=== PATIENT | female | born 1950 | race Caucasian/White ===

== ENCOUNTER 2020-12-27 16:43 | Emergency (ER) | payer OTHER ==
[~2020-12-27] VITALS: Ht 167.6 cm; Wt 90.7 kg
[~2020-12-27 16:43] MED LIST: ATEN50TA PO; TRAM50TA2 PO
[2020-12-27 18:57] LABS: Albumin 3.8 g/dL (3.4-5.0); Potassium 4.2 mmol/L (3.5-5.1)
[2020-12-27 19:03] LABS: BUN/Creatinine Ratio 15.5; Bilirubin, Total 1.2 mg/dL (0.2-1.0); Calcium 8.9 mg/dL (8.5-10.1); Total Protein 7.5 g/dL (6.4-8.2)
[2020-12-27 19:04] LABS: Basophils # (auto) 0 10 ^3/uL (0-0.2); Basophils % (auto) 0.4 % (0.0-2.0); Eosinophils # (auto) 0 10 ^3/uL (0-0.8); Eosinophils % (auto) 0.3 % (0.0-7.0); Hematocrit 46.4 % (36.0-46.0); Hemoglobin 15.9 g/dL (12.2-16.2); Lymphocytes # (auto) 1.6 10 ^3/uL (0.4-5.4); Mean Corpuscular Hemoglobin 28.9 pg (28.0-32.0); Mean Corpuscular Hgb Conc. 34.3 g/dL (32.0-36.0); Mean Corpuscular Volume 84.3 fL (80.0-100.0); Monocytes # (auto) 0.4 10 ^3/uL (0-1.3); Monocytes % (auto) 5.4 % (0.0-12.0); Neutrophils # (auto) 5.5 10 ^3/uL (1.6-8.6); Neutrophils % (auto) 72.9 % (37.0-80.0); Nucleated Red Blood Cells % 0.1 %; Red Blood Cells 5.51 10^6/uL (4.0-5.20); Red Cell Distribution Width 13.4 % (11.8-14.3); White Blood Cell 7.5 10^3/uL (4.4-10.8)
[2020-12-27 20:29] LABS: Urine Bacteria FEW /hpf (None Seen); Urine Blood Negative /uL (Negative); Urine Mucus MODERATE (None Seen); Urine Specific Gravity 1.027 (1.001-1.035); Urine WBC 4 /hpf (0 - 5)
[2020-12-27 21:06] VITALS: BP 155/86
[2020-12-27] MEDS ORDERED: KETOROLAC TROMETH 60MG/2ML VIAL IM ONE (21:30)
[2020-12-27] MEDS ORDERED: cefTRIAXone SOD 1,000 MG VL IM ONE (21:30)
== END 2020-12-27 21:47 | disposition home or self-care (01) ==
LOC: ER 16:43
DX: N39.0 Urinary tract infection, site not specified (principal); K42.9 Umbilical hernia without obstruction or gangrene; E11.9 Type 2 diabetes mellitus without complications; I10 Essential (primary) hypertension; Z90.710 Acquired absence of both cervix and uterus
CPT/HCPCS: 36415; 74176; 80053; 81001; 83690; 84484; 85025; 85049; 87086; 93005; 96372; 99285; J0696; J1885

== ENCOUNTER 2022-12-23 16:54 | Observation (INO) | payer OTHER ==
[~2022-12-23] VITALS: Ht 33 cm; Wt 85.0 kg
[2022-12-23 21:44] VITALS: BP_SYST 146; BP_SYST 156; BP_DIAS 88
[2022-12-23] MEDS ORDERED: HYDROcodone-ACET 5/325MG TAB PO PRN (21:45)
[2022-12-23] MEDS ORDERED: DOCUSATE SOD 100 MG CAP PO PRN (21:45)
[2022-12-23] MEDS ORDERED: NITROGLYCERIN 0.4 MG SL TAB SL PRN (21:45)
[2022-12-23] MEDS ORDERED: ONDANSETRON HCL 4 MG/2 ML VIAL IV PRN (21:45)
[2022-12-23] MEDS ORDERED: hydrALAZINE HCL 20 MG/ML VL IV PRN (21:45)
[2022-12-23] MEDS ORDERED: MORPHINE SULFATE INJ 2 MG/ml SYRG IV PRN (21:45)
[2022-12-23] MEDS ORDERED: ACETAMINOPHEN 325 MG TAB PO PRN (21:45)
[2022-12-23 22:00] VITALS: BP 156/88
[2022-12-23] MEDS: ATORVASTATIN 20 MG TAB PO SCH (22:53)
[2022-12-23] MEDS: CARVEDILOL 3.125 MG TAB PO SCH (22:54)
[2022-12-24 05:00] VITALS: BP 113/59
[2022-12-24 06:45] LABS: Basophils # (auto) 0 10 ^3/uL (0-0.2); Basophils % (auto) 0.9 % (0.0-2.0); Eosinophils # (auto) 0.1 10 ^3/uL (0-0.8); Eosinophils % (auto) 1.8 % (0.0-7.0); Hematocrit 39.8 % (36.0-46.0); Hemoglobin 13.4 g/dL (12.2-16.2); Lymphocytes # (auto) 1.3 10 ^3/uL (0.4-5.4); Lymphocytes % (auto) 24.2 % (10.0-50.0); Mean Corpuscular Hgb Conc. 33.8 g/dL (32.0-36.0); Mean Corpuscular Volume 82.8 fL (80.0-100.0); Monocytes # (auto) 0.4 10 ^3/uL (0-1.3); Monocytes % (auto) 7.4 % (0.0-12.0); Neutrophils # (auto) 3.6 10 ^3/uL (1.6-8.6); Neutrophils % (auto) 65.7 % (37.0-80.0); Nucleated Red Blood Cells % 0.1 %; Red Blood Cells 4.81 10^6/uL (4.0-5.20); Red Cell Distribution Width 13.8 % (11.8-14.3); White Blood Cell 5.4 10^3/uL (4.4-10.8)
[2022-12-24 07:03] LABS: BUN/Creatinine Ratio 19.4 (10.0-20.0); Calcium 8.5 mg/dL (8.5-10.1); Potassium 3.9 mmol/L (3.5-5.1)
[2022-12-24 09:00] VITALS: BP 126/71
[2022-12-24] MEDS ORDERED: ENOXAPARIN SOD 40 MG/0.4 ML SYRINGE SC SCH (10:00)
[2022-12-24] MEDS: ASPirin 81 mg TAB PO SCH (10:00)
[2022-12-24] MEDS: PANTOPRAZOLE 40 MG/10 ML VIAL INJ IV SCH (10:59)
[2022-12-24] MEDS: CARVEDILOL 3.125 MG TAB PO SCH ×2 (11:00→22:00)
[2022-12-24 12:44] VITALS: BP 153/70
[2022-12-24] MEDS ORDERED: DEXTROSE (50%) 50ML SYRG IV PRN (14:45)
[2022-12-24 16:48] VITALS: BP 156/88
[2022-12-24] MEDS: InsuLIN REG 1unit/0.01ml Soln (100units/ml) SC SCH ×2 (17:00→23:43)
[2022-12-24] MEDS: ACCU-CHEK COMFORT CURVE STRIP VI SCH ×2 (17:00→23:37)
[2022-12-24 22:00] VITALS: BP 122/73
[2022-12-24] MEDS: ATORVASTATIN 20 MG TAB PO SCH (23:37)
[2022-12-25 05:00] VITALS: BP 123/82
[2022-12-25] MEDS: ACCU-CHEK COMFORT CURVE STRIP VI SCH ×3 (06:52→17:00)
[2022-12-25 06:54] LABS: Basophils # (auto) 0 10 ^3/uL (0-0.2); Basophils % (auto) 0.6 % (0.0-2.0); Eosinophils # (auto) 0.1 10 ^3/uL (0-0.8); Eosinophils % (auto) 2.2 % (0.0-7.0); Hematocrit 42.5 % (36.0-46.0); Hemoglobin 14.1 g/dL (12.2-16.2); Lymphocytes # (auto) 1.8 10 ^3/uL (0.4-5.4); Lymphocytes % (auto) 31.9 % (10.0-50.0); Mean Corpuscular Hemoglobin 27.7 pg (28.0-32.0); Mean Corpuscular Hgb Conc. 33.3 g/dL (32.0-36.0); Mean Corpuscular Volume 83.3 fL (80.0-100.0); Monocytes # (auto) 0.4 10 ^3/uL (0-1.3); Monocytes % (auto) 7.3 % (0.0-12.0); Neutrophils # (auto) 3.3 10 ^3/uL (1.6-8.6); Nucleated Red Blood Cells % 0.2 %; Red Cell Distribution Width 13.9 % (11.8-14.3); White Blood Cell 5.7 10^3/uL (4.4-10.8)
[2022-12-25] MEDS: InsuLIN REG 1unit/0.01ml Soln (100units/ml) SC SCH ×3 (06:54→17:00)
[2022-12-25 07:27] LABS: BUN/Creatinine Ratio 16.2 (10.0-20.0)
[2022-12-25 07:28] LABS: Calcium 8.7 mg/dL (8.5-10.1)
[2022-12-25 09:00] VITALS: BP 124/74
[2022-12-25] MEDS: PANTOPRAZOLE 40 MG/10 ML VIAL INJ IV SCH (09:28)
[2022-12-25] MEDS: ASPirin 81 mg TAB PO SCH (09:28)
[2022-12-25] MEDS: CARVEDILOL 3.125 MG TAB PO SCH (09:30)
[2022-12-25] MEDS ORDERED: AMIO200T13 PO (11:56)
[2022-12-25] MEDS ORDERED: FAMO20TA10 PO (11:56)
[2022-12-25] MEDS ORDERED: CARV3.1240 PO (11:56)
[2022-12-25] MEDS ORDERED: ATOR-47 PO (11:56)
[2022-12-25] MEDS ORDERED: FLUT1INH6 PO (11:57)
[2022-12-25] MEDS ORDERED: ASPI81CH59 PO (11:57)
[2022-12-25] MEDS ORDERED: FUR20T PO (11:57)
[2022-12-25 13:00] VITALS: BP 147/82
[2022-12-25 15:06] VITALS: BP 124/74
[2022-12-25 17:00] VITALS: BP 143/66
== END 2022-12-25 15:00 | disposition home or self-care (01) ==
LOC: UNDOADMIN 20:00 → TELE-WESTW 20:00 → TELE 20:00 → UNDODISIN 12-25 15:00
PROVIDERS: ADMIT Internal Medicine; ATTEND Internal Medicine
DX: R07.89 Other chest pain (principal); J90 Pleural effusion, not elsewhere classified; N17.9 Acute kidney failure, unspecified; E11.9 Type 2 diabetes mellitus without complications; I25.10 Atherosclerotic heart disease of native coronary artery without angina pectoris; I10 Essential (primary) hypertension; F41.9 Anxiety disorder, unspecified; I25.2 Old myocardial infarction; Z95.3 Presence of xenogenic heart valve; Z95.1 Presence of aortocoronary bypass graft; Z79.899 Other long term (current) drug therapy
CPT/HCPCS: 36415; 76604; 80048; 82962; 83690; 85025; 87081; 93306; 96374; 96376; C9113; G0378